=== PATIENT | male | born 1960 | race Two or more races ===

== ENCOUNTER → 2018-08-19 | Outpatient (CLI) | payer OTHER ==
[~2018-08-19] MED LIST: LIDOCAINE 1% 300 MG/30 ML SDV ONE
== END ==
LOC: FIMAGING 07:44
PROVIDERS: ATTEND Internal Medicine Hematology & Oncology
PROC: 07B53ZX Excision of Right Axillary Lymphatic, Percutaneous Approach, Diagnostic (ICD-10-PCS; principal; 2018-08-19)
DX: R59.9 Enlarged lymph nodes, unspecified (principal); C20 Malignant neoplasm of rectum
CPT/HCPCS: 88184-90; 88185-91

== ENCOUNTER 2018-11-13 08:51 | Inpatient (IN) | payer MEDICAID ==
[~2018-11-13 08:51] MED LIST changes: -LIDOCAINE 1% 300 MG/30 ML SDV ONE; +cefOXitin SODIUM 2 GM in NS 100 ML IV ONE
[2018-11-13] MEDS ORDERED: LR 1,000 ML IV ONE (09:18)
--- NOTE | 2018-11-13 10:58 | PDHPUP ---
History & Physical Update H&P update statement: This history and physical update is based on an assessment of the patient which was completed after admission or registration (within 24 hours), but prior to the surgery/procedure. H&P update: H&P reviewed & patient examined, changes noted (had coffee with cream this morning - delaying case. Bowel prep with clear return)
[2018-11-13] MEDS ORDERED: BUPIVACAINE 0.5% 30 ML SDV ONE (13:54)
[2018-11-13] MEDS ORDERED: MIDAZOLAM 2 MG/2 ML VIAL IVP ONE (14:56)
--- NOTE | 2018-11-13 14:59 | PDANEPAE ---
ANE Past Medical History - Cardiovascular History Hx Hypertension: No Hx Arrhythmias: No Hx Chest Pain: No Hx Coronary Artery / Peripheral Vascular Disease: No Hx CHF / Valvular Disease: No Hx Palpitations: No - Pulmonary History Hx COPD: No Hx Asthma/Reactive Airway Disease: No Hx Recent Upper Respiratory Infection: No Hx Oxygen in Use at Home: No Hx Sleep Apnea: No Sleep Apnea Screening Result - Last Documented: Negative - Neurologic History Hx Cerebrovascular Accident: No Hx Seizures: No Hx Dementia: No - Endocrine History Hx Diabetes: No - Renal History Hx Renal Disorders: No - Liver History Hx Hepatic Disorders: No - Neurological & Psychiatric Hx Hx Neurological and Psychiatric Disorders: No - Cancer History Hx Cancer: Yes Cancer History Comment: rectal ca - Congenital Disorder History Hx Congenital Disorders: No - GI History Hx Gastrointestinal Disorders: Yes Gastrointestinal History Comment: hx of colonoscopy. rectal bleeding on and off since 02/2018 - Other Health History Other Health History: missing teeth. rash on right knee, ankle - Chronic Pain History Chronic Pain: No - Surgical History Prior Surgeries: left knee scope- cyst removed. left hip fx repair s/p fall off ladder in 2002. tonsillectomy as child ANE Review of Systems Review of Systems: - Exercise capacity METS (RN): 4 METS ANE Patient History - Allergies Allergies/Adverse Reactions: No Known Allergies Allergy (Verified 11/05/18 17:04) - Home Medications Home medications: home medication list seen and reviewed Home Medications: NK [No Known Home Meds] 11/04/18 [Last Taken Unknown] - NPO status NPO Status: no food or drink >8 hours NPO Since - Liquids (Date): 11/13/18 NPO Since - Liquids (Time): 08:30 NPO Since - Solids (Date): 11/12/18 NPO Since - Solids (Time): 10:30 - Anes Hx Anes Hx: no prior problems - Smoking Hx Smoking Status: Current some day smoker - Family Anes Hx Family Hx Anesthesia Complications: none ANE Labs/Vital Signs - Vital Signs Blood Pressure: 150/92 Heart Rate: 64 Respiratory Rate: 18 O2 Sat (%): 95 Height: 165.1 cm Weight: 86.183 kg ANE Physical Exam - Airway Neck exam: FROM Mallampati Score: Class 2 Mouth exam: normal dental/mouth exam - Pulmonary Pulmonary: no respiratory distress, no rales or rhonchi, clear to auscultation - Cardiovascular Cardiovascular: regular rate and rhythym, no murmur, rub, or gallop - ASA Status ASA Status: II ANE Anesthesia Plan Anesthesia Plan: general endotracheal anesthesia
[2018-11-13] MEDS ORDERED: PROPOFOL 200 MG/20 ML VIAL ONE (15:47)
[2018-11-13] MEDS ORDERED: LIDOCAINE 2% 2 ML INJ ONE (15:48)
[2018-11-13] MEDS ORDERED: ONDANSETRON 4 MG/2 ML VIAL ONE (15:48)
[2018-11-13] MEDS ORDERED: DEXAMETHASONE 4 MG/ML VIAL ONE ×2 (15:48)
[2018-11-13] MEDS ORDERED: ROCURONIUM 100 MG/10 ML VIAL ONE (15:48)
[2018-11-13] MEDS ORDERED: ENALAPRILAT DIHYDRATE 2.5 MG/2 ML VIAL IVP ONE (17:02)
[2018-11-13] MEDS ORDERED: ROCURONIUM 50 MG/5 ML VIAL ONE (18:36)
[2018-11-13] MEDS ORDERED: NALOXONE HCL 0.4 MG/ML INJ IVP PRN (19:38)
[2018-11-13] MEDS ORDERED: LR 500 ML IV PRN (19:38)
[2018-11-13] MEDS ORDERED: ONDANSETRON 4 MG/2 ML VIAL IVP PRN ×2 (19:38→19:56)
[2018-11-13] MEDS ORDERED: PROMETHAZINE HCL 25 MG/ML INJ IVP PRN (19:38)
[2018-11-13] MEDS ORDERED: MEPERIDINE 25 MG/0.5 ML AMP IVP PRN (19:38)
[2018-11-13] MEDS ORDERED: SUGAMMADEX SODIUM 200 MG/2 ML VIAL IVP ONE (19:41)
--- NOTE | 2018-11-13 19:54 | POSTOPPROG ---
Post Op Note Date of Operation: 11/13/18 Surgeon: Carla Tellez Medicine Tech: krysta Anesthesiologist: osmel Anesthesia: GET(General Endotracheal) Pre-op Diagnosis: rectal ca Post-op Diagnosis: same Indication: 58 yo with rectal ca Procedure: davinci lar diverting loop ileostomy Findings: about 6 cm from anal verge Inf/Abcess present in the surg proc area at time of surgery?: No EBL: Minimal Bowel Protocol: Yes Clean Closure Performed: Yes Specimen(s): rectum and rings
[2018-11-13] MEDS ORDERED: ACETAMINOPHEN 325 MG TAB PO PRN (19:56)
--- NOTE | 2018-11-13 19:58 | POSTANESTH ---
Post Anesthetic Evaluation Cardiovascular Status: Normal, Stable, Similar to Pre-Op Cond Respiratory Status: Normal, Stable, Similar to Pre-op Cond. Level of Consciousness/Mental Status: Moderately Sleepy Pain Control: Adequate, Prn Tx Ordered Nausea/Vomiting Control: Adequate, Prn Tx Ordered Complications Possibly Related to Anesthesia: None Noted
[2018-11-13] MEDS ORDERED: fentaNYL 100 MCG/2 ML INJ ONE (20:29)
[2018-11-13] MEDS: fentaNYL 100 MCG/2 ML INJ IVP PRN ×2 (20:32→20:40)
[2018-11-13] MEDS: NS 1,000 ML IV SCH (22:19)
[2018-11-14 04:54] LABS: PLATELET COUNT 243 10^3/uL (150-400)
--- NOTE | 2018-11-14 06:20 | PDMN ---
Medical Necessity Medical necessity: [facility] IP only surgery; cpt 49601 Colon Resection w/Ileostomy
[2018-11-14] MEDS: KETOROLAC 15 MG/1 ML SDV IVP PRN ×2 (08:19→15:21)
[2018-11-14] MEDS: ENOXAPARIN 40 MG/0.4 ML SYR SC SCH (10:43)
--- NOTE | 2018-11-14 10:51 | ASMTCMCOM ---
CM Note CM Note Notes: CM spoke with pt and family in the room. Pt admitted for ileostomy placement in the setting of colon cancer. Pt had surgery yesterday. Pt lives with female partner and just moved to [facility] [place] Dr. Winslow [address] [place] [address], [place]. No therapies ordered at this time. Pt has not yet received education from hand sewer shoes, but per surgeon will need [facility] RN for ostomy support upon discharge. Referrals sent to [facility] in the area. CM to follow. D/C Plan: [facility] RN Date Signed: 11/14/2018 10:51 AM Electronically Signed By:Rhina Wilson. LESIA
--- NOTE | 2018-11-14 15:54 | SOAPPROG ---
SOAP Progress Note Assessment/Plan: Assessment: POD # 1 s/p davinci LAR with diverting ileostomy for rectal cancer (s/p chemo and radiation) Doing well Gas and some stool in appliance Neuro: Morphine Resp - IS Cards - monitor for hemodynamic instability GI - Some bowel function has returned FEN - Clears - Sauer can remove Heme/ID - No abx Proph - lovenox Dispo - continue inpatient, greater than 2 midnighjts for return of bowel function. Will need home health S: Pain controlled, no nausea O: Sitting in bed CTAB RRR BS hypoactive gas and stool in appliance Soft Incisions cdi GHANSHYAM with serosang fluid Plan: 11/14/18 15:46 Objective: Vital Signs Temp Pulse Resp BP Pulse Ox 37.2 C 78 16 130/73 H 95 11/14/18 11:14 11/14/18 11:14 11/14/18 11:14 11/14/18 11:14 11/14/18 11:14 Laboratory Results 11/14/18 04:25 11/14/18 04:25 11/13/18 11/14/18 11/15/18 05:59 05:59 05:59 Intake Total 2760 Output Total 1355 Balance 1405 ICD10 Worksheet Patient Problems: Problems Problem Status Onset Rectal cancer Acute - ICD10 Problem Qualifiers (1) Rectal cancer
[2018-11-14] MEDS: NS 1,000 ML IV SCH (19:15)
[2018-11-14] MEDS: HYDROCODONE/APAP 5/325 TAB PO PRN (20:44)
[2018-11-15 05:53] LABS: PLATELET COUNT 195 10^3/uL (150-400)
[2018-11-15] MEDS: KETOROLAC 15 MG/1 ML SDV IVP PRN (07:42)
[2018-11-15] MEDS: ENOXAPARIN 40 MG/0.4 ML SYR SC SCH (10:12)
--- NOTE | 2018-11-15 13:06 | SOAPPROG ---
SOAP Progress Note Assessment/Plan: Assessment: POD # 2 s/p davinci LAR with diverting ileostomy for rectal cancer (s/p chemo and radiation) Doing well Gas and some stool in appliance Neuro: Morphine/Toradol Resp - IS Cards - monitor for hemodynamic instability GI - Some bowel function has returned FEN - Advance diet - Sauer can remove Heme/ID - No abx Proph - lovenox Dispo - continue inpatient, greater than 2 midnighjts for return of bowel function. Will need home health S: Pain controlled, no nausea. Very hungry. Lots of gas O: Sitting in bed CTAB RRR BS present gas and stool in appliance Soft Incisions cdi GHANSHYAM with serosang fluid Plan: 11/14/18 15:46 11/15/18 13:04 Objective: Vital Signs Temp Pulse Resp BP Pulse Ox 37.1 C 67 16 118/73 93 11/15/18 11:55 11/15/18 11:55 11/15/18 11:55 11/15/18 11:55 11/15/18 11:55 Laboratory Results 11/15/18 04:20 11/14/18 04:25 11/14/18 11/15/18 11/16/18 05:59 05:59 05:59 Intake Total 2760 550 Output Total 1355 0425 390 Balance 1405 -2235 -390 ICD10 Worksheet Patient Problems: Problems Problem Status Onset Rectal cancer Acute - ICD10 Problem Qualifiers (1) Rectal cancer
[2018-11-15] MEDS: NS 1,000 ML IV SCH (19:47)
[2018-11-15] MEDS: HYDROCODONE/APAP 5/325 TAB PO PRN (19:47)
[2018-11-16] MEDS: ENOXAPARIN 40 MG/0.4 ML SYR SC SCH (09:04)
[2018-11-16 11:22] VITALS: BP 146/99
--- NOTE | 2018-11-16 13:34 | SOAPPROG ---
SOAP Progress Note Assessment/Plan: Assessment: POD # 3 s/p davinci LAR with diverting ileostomy for rectal cancer (s/p chemo and radiation) Doing well Gas and some stool in appliance Neuro:ibuprofen Resp - IS Cards - monitor for hemodynamic instability GI - Some bowel function has returned FEN - regular diet Proph - lovenox Dispo - home tody S: Pain controlled, no nausea. tolerating diet O: Sitting in bed CTAB RRR BS present gas and stool in appliance Soft Incisions cdi GHANSHYAM with serosang fluid Plan: 11/14/18 15:46 11/15/18 13:04 11/16/18 13:33 Objective: Vital Signs Temp Pulse Resp BP Pulse Ox 37.0 C 69 16 146/99 H 90 L 11/16/18 11:21 11/16/18 11:21 11/16/18 11:21 11/16/18 11:21 11/16/18 11:21 Laboratory Results 11/15/18 04:20 11/14/18 04:25 11/15/18 11/16/18 11/17/18 05:59 05:59 05:59 Intake Total 550 850 Output Total 1614 4460 1330 [facility] -2235 -3610 -1330 ICD10 Worksheet Patient Problems: Problems Problem Status Onset Rectal cancer Acute - ICD10 Problem Qualifiers (1) Rectal cancer
--- NOTE | 2018-11-16 13:41 | PDIAF ---
- Diagnosis Diagnosis: rectal cancer Code Status: Full Code - Medication Management Discharge Medications: electronically signed and located in the Home Medication List. - Orders Services needed: Home Care, Registered Nurse Home Care Face to Face: I certify that this patient was under my care and that I had the required [id number] encounter meeting the encounter requirements on the discharge day. My findings support the fact that the patient is homebound as defined in Home Care Face to Face Continued: CMS Chapter 7 Medicare Benefits Manual 30.1.1 , The condition of the patient is such that there exists a normal inability to leave home and consequently, leaving home would require a considerable and taxing effort. Diet Recommendation: no restrictions on diet Wound Care Instructions: loop ileostomy teaching Activity/Weight Bearing Restrictions: No heavy lifting pushing or pulling more than 15 lbs for 6 weeks Additional Instructions: Dr. Tellez post op instruction sheet May shower No heavy lifting pushing or pulling more than 15 lbs for 6 weeks - Follow Up Care Current Providers and Referrals: Wound Ostmy Skin LESIA Valverde, RN [Registered Nurse] - (2-3 weeks for ostomy check in appointment) Carla Tellez MD [Medical Doctor] - follow up in 2 weeks NONE *PRIMARY CARE P,. [Primary Care Provider] -
--- NOTE | 2018-11-16 15:16 | ASMTDCNOTE ---
Case Management Discharge Discharge Order Complete? Answers: Yes Patient to Obtain Answers: Independently Medications Transportation Arranged Answers: Family/Friends Faxed Final Orders Answers: Yes Agency/Facility Transfer Answers: Yes Report Printed & Faxed to Receiving Agency Discharge Comments Notes: D/w MD, final orders faxed. [employer] notified. scientific illustrator to do teaching and send pt with some supplies. Date Signed: 11/16/2018 02:13 PM Electronically Signed By:Audra Trammell RN
--- NOTE | 2018-11-16 15:32 | WOCRNPDOC ---
WOCRN Advanced Assessment Note - Ileostomy Assessment, Advanced Right Abdomen Ileostomy Appliance Intact: Yes Ileostomy Appliance Currently in Use: Two Piece Flat, 2 1/4 Ileostomy Accessory: Barrier Ring (given in kit), Powder (given ), Stoma Paste Stoma Color: [place], Red Stoma Turgor: Moist, Shiny Stoma Height: Recessed Ileostomy Effluent: Fecal, Thin Ileostomy Size - Head-to-Toe Length X Width X Depth (cm): pt declined removal of appliance for accurate measurement Ileostomy Details: Loop Ileostomy Comment/Treatment Details: Surgery friday afernoon so this is the first visit for Ostomy teaching. Patient discharging this afternoon with home health RN visits. Starter kit given, reviewed and assigned reading. Talked patient through pouch emptying which he did well. Patient declined appliance change teaching since changed yesterday. Removed pouch to show patient the stoma and demo how to measure for cut to fit appliance. Difficult to see stoma to measure due to intact appliance and recessed stoma. Talked patient through how to measure for cutting using the teaching stoma. Discussed appliance options and patient prefers to stay with [place] two piece 2 1/4 flat currently wearing. Sent home with 2 convex wafers as an option for home RN to use if stoma recessed at change. Given verbal permission by patient to enroll in secure start program and initiated. Talked with patient about peristomal skin care; emptying positions; showering; introduced stoma powder/barrier rings and when to use; sent with paste. Patient attentive and involved during all of teaching. [facility] for resource.
--- NOTE | 2018-11-17 13:57 | ASDISCHSUM ---
Discharge Information Plan Status:Home with Home Health Medically Cleared to Leave:11/16/2018 Discharge Date:11/16/2018 05:38 PM CM D/C Disposition: ADT D/C Disposition:[id number] Projected Discharge Date:11/16/2018 11:00 AM Transportation at D/C: Discharge Delay Reason: Follow-Up Date:11/16/2018 11:00 AM Discharge Slot: Final Diagnosis: Placement Information Referral Type:*Home Health Care Services Referral ID:[id number] Provider Name:[facility] (formerly [facility]) Address 1:[address] [facility] [address] Address 2: City:[place] Selection Factors: State:[place] Patient Contact Information Contact Name:MARY Relationship:Aunt Address: Work Phone: City: [facility] [place] Phone: [facility] Code: Email: Financial Information Financial Class:Medicaid Primary Plan Desc:MED[place] Primary Plan Number:[id number] Secondary Plan Desc: Secondary Plan Number: Assessment Information [facility] CM Progress Note CM Note CM Note Notes: CM spoke with pt and family in the room. Pt admitted for ileostomy placement in the setting of colon cancer. Pt had surgery yesterday. Pt lives with female partner and just moved to [address] [place] [address] Dr. Wins[address] [place] [address]. No therapies ordered at this time. Pt has not yet received education from day care director, but per surgeon will need [facility] RN for ostomy support upon discharge. Referrals sent to [facility] in the area. CM to follow. D/C Plan: [facility] RN Date Signed: 11/14/2018 10:51 AM Electronically Signed By:Rhina Wilson. RN Case Management Discharge Plan Note Case Management Discharge Discharge Order Complete? Answers: Yes Patient to Obtain Answers: Independently Medications Transportation Arranged Answers: Family/Friends Faxed Final Orders Answers: Yes Agency/Facility Transfer Answers: Yes Report Printed & Faxed to Receiving Agency Discharge Comments Notes: D/w MD, final orders faxed. [employer] notified. director of staff development to do teaching and send pt with some supplies. Date Signed: 11/16/2018 02:13 PM Electronically Signed By:Audra Trammell RN Intervention Information
--- NOTE | 2018-11-17 14:05 | GDS ---
[f rep st] DISCHARGE SUMMARY ADMITTING DIAGNOSIS: Rectal cancer. SECONDARY DIAGNOSIS: None. REASON FOR ADMISSION: A 58-year-old man with rectal cancer who underwent chemotherapy and radiation. He presents at this time for surgical intervention. HOSPITAL COURSE: He was taken to the operating room on 11/13/[address] Carla Tellez for a robot-ass isted low anterior resection with diverting loop ileostomy. The tattooed area of cancer was approxim ately 6 cm from the anal verge. Through his postoperative course, he received ostomy teaching. Postoperative day #1, his Sauer catheter was removed. He was started on clear liquid diet. He was p assing stool and flatus into the appliance. Postoperative day #2, his diet was advanced. He was transitioned to oral pain medication. By postoperative day #3, he was ambulating independently, tolerating a regular diet, had full return of bowel function, and his pain was well controlled. DISCHARGE CONDITION: Being discharged home in stable condition with home care for ostomy teaching. DISCHARGE INSTRUCTIONS AND FOLLOWUP: He was sent home with Dr. Tellez's postop instructions instructi on sheet. He may shower. No heavy lifting, pushing, or pulling greater than 15 pounds for 6 weeks. Ostomy education instructions also included. He will follow up with Dr. Tellez in 2 weeks. Call wit h worsening symptoms, questions, or concerns. He will also follow up with the wound ostomy care nurs homer. Raad #: [id number]/[id number]
--- NOTE | 2018-11-20 16:03 | GOP ---
[f rep st] OPERATIVE REPORT DATE OF OPERATION: 11/13/2018 SURGEON: Carla Tellez MD DIRECT SERVICE WORKER: Wiliam Peralta MD. ANESTHESIA: General. ANESTHESIOLOGIST: Henrik Mcgill MD. PREOPERATIVE DIAGNOSIS: Rectal cancer. POSTOPERATIVE DIAGNOSIS: Rectal cancer. PROCEDURE PERFORMED: [place]ola low anterior resection with diverting loop ileostomy. FINDINGS: ink posterior SPECIMENS: Colon and anastomotic rings. INDICATIONS: The patient is a 58 year old who was diagnosed with rectal cancer. He has undergone neoadjuvant chemotherapy and radiation. DESCRIPTION OF PROCEDURE: Patient was brought into the operating room, placed supine on the table, and general anesthesia was administered. He was then placed in lithotomy position. The abdomen and perineal areas were prepped and draped in the usual sterile fashion. I made a small incision above his umbilicus. I inserted the Veress needle. It passed the hanging drop test. Abdomen insufflated easily to a pressure of 15 mmHg. I placed an 8 mm trocar at this site with a camera. There were no injuries from Veress needle placement. I placed two additional trocars on the left abdomen and two on the right side of the abdomen. He was placed in the Trendelenburg position. The robot was brought in and docked. Instruments were introduced under direct vision. Exploration of the abdominal cavity took place to rule out metastatic disease. There was no evidence of metastatic disease. The sigmoid colon was retracted anteriorly, which was redundant, and the vascular pedicle was identified. Incision in the peritoneum was done at the level of the sacral promontory, and dissection was carried up to bring up the mesentery of the sigmoid from the retroperitoneum. I spent time looking for the left ureter but never truly identified it during the case. Dissection was carried laterally along the white line of Toldt. Posterior dissection to the rectum was done in the presacral space using the Harmonic. I was well below the levels of the levator ani. Lateral dissection was performed. The lateral attachments were taken down using the Harmonic. Anteriorly peritoneal reflection was opened and the dissection was carried distally. There was blue ink posteriorly and this tracked significantly. Stapler was introduced, and I transected the specimen proximally. Once I was happy with the level of the dissection along the peritoneal reflection and I was not able to go any further as it seemed to only had approximately 5 cm length left, I stapled in the pelvis. I placed the specimen in the EndoCatch bag. I was concerned that the distal staple line was so close to the sphincters that if there were any issues with firing that I would not be able to redo that staple line and so I made a Pfannenstiel incision and placed an Freddy wound protector. I retrieved the specimen. I removed the staple line on the proximal side of bowel. I performed hand pursestring suture with 2-0 Prolene. I placed the anvil in this area. I inserted the stapler 33 EEA through the bottom, and the spike was deployed, performing and connected. The stapler was fired, rings inspected and found to be intact. The anastomosis was checked for a leak using air insufflation. There was no tension at the anastomosis. Hemostasis was achieved. A drain was placed in the pelvis. I selected a piece of bowel on the terminal ileum, and I made an incision on the right lower quadrant that had been marked by the ostomy nurses before surgery. I dissected down through the subcutaneous tissues, divided the fascia, and spread the rectus muscles. I brought the loop of bowel out to the skin. Gown and gloves were changed and clean closure performed. The fascia was closed with #1 PDS. Skin closed with 3-0 Vicryl followed by 4-0 Monocryl. Dermabond applied. The skin was closed with 4-0 Monocryl. Next, I matured the ostomy. I made an enterotomy and performed four brooking sutures. The fascia was enough to accommodate 3 fingerbreadths. I then matured the ostomy with 3-0 Vicryl and appliance was placed. He was awakened in the operating room, taken out of lithotomy position, extubated, transferred to PACU in stable condition. /[id number]/MODL MTDD
== END 2018-11-16 17:38 | disposition home health service (06) | DRG 230 ==
LOC: F3E 08:51
PROVIDERS: ADMIT Surgery; ATTEND Surgery
PROC: 0DTP4ZZ Resection of Rectum, Percutaneous Endoscopic Approach (ICD-10-PCS; principal; 2018-11-13 11:00)
PROC: 0D1B4Z4 Bypass Ileum to Cutaneous, Percutaneous Endoscopic Approach (ICD-10-PCS; principal; 2018-11-13 11:00)
PROC: 8E0W4CZ Robotic Assisted Procedure of Trunk Region, Percutaneous Endoscopic Approach (ICD-10-PCS; principal; 2018-11-13 11:00)
PROC: 0DBN4ZZ Excision of Sigmoid Colon, Percutaneous Endoscopic Approach (ICD-10-PCS; principal; 2018-11-13 11:00)
DX: C20 Malignant neoplasm of rectum (principal); Z87.891 Personal history of nicotine dependence; Z92.3 Personal history of irradiation
CPT/HCPCS: J0694; J1100; J1650; J1885; J2250; J2270; J2405; J2704; J3010

== ENCOUNTER 2018-11-19 20:00 | Observation (INO) | payer MEDICAID ==
[2018-11-19] MEDS ORDERED: ACETAMINOPHEN 325 MG TAB PO PRN (20:15)
[2018-11-19] MEDS ORDERED: ONDANSETRON DISINTEGRATING 4 MG TAB PO PRN (20:15)
[2018-11-19] MEDS ORDERED: LORazepam 2 MG/ML INJ IVP PRN (20:15)
[2018-11-19] MEDS ORDERED: ONDANSETRON 4 MG/2 ML VIAL IVP PRN (20:15)
[2018-11-19] MEDS ORDERED: HYDROCODONE/APAP 5/325 TAB PO PRN (21:30)
[2018-11-19] MEDS ORDERED: hydrALAZINE 20 MG/ML VIAL IVP PRN (21:30)
--- NOTE | 2018-11-19 21:30 | PDGENHP ---
History and Physical - Chief Complaint abdominal pain, elevated BP - History of Present Illness 58yo M with history stage IIIB rectal adenocarcinoma s/p XRT and chemo followed by surgical resection with diverting loop ileostomy 11/13/2018 who presents from [facility] ED with abdominal pain, nausea, and elevated BP. He was discharged from this facility on 11/17 and was doing well. He started to develop some abdominal pain yesterday and again had nausea last night after eating some artichoke dip that had sat out for several hours the night before. He has been changing his ostomy every 3-4 hours but noticed that output had slowed today. No fevers or chills. Abdominal pain became severe so he went to the ED. He had one episode of bilious emesis. He was found to be tachycardic with a BP of 208/ 127. His BP improved to 162/111 after administration of pain medications and 5mg IV metoprolol. A CT of his abdomen shows distention of ileum proximal to ostomy site with multiple air-fluid levels raising concern for obstruction at ostomy site of developing ileus. He was transferred here for further management and care. History Information - Allergies/Home Medication List Allergies/Adverse Reactions: No Known Allergies Allergy (Verified 11/05/18 17:04) Home Medications: Ibuprofen [Motrin (*)] 200 - 600 mg PO Q6HRS PRN 11/19/18 [Last Taken Unknown] I have personally reviewed and updated: family history, medical history, social history, surgical history - Past Medical History Additional medical history: stage IIIB adenocarcinoma of rectum - Surgical History Additional surgical history: robot-assisted LAR with diverting loop ileostomy - Family History Positive for: non-pertinent - Social History Smoking Status: Current some day smoker Alcohol Use: None Drug Use: None Review of Systems Review of Systems: ROS: 10pt was reviewed & negative except for what was stated in HPI & below Physical Exam Physical Exam: Constitutional: no apparent distress, appears nourished, not in pain Eyes: PERRL, anicteric sclera, EOMI Ears, Nose, Mouth, Throat: moist mucous membranes, hearing normal, ears appear normal, no oral mucosal ulcers Cardiovascular: regular rate and rhythym, no murmur, rub, or gallop, No edema Respiratory: no respiratory distress, no rales or rhonchi, clear to auscultation Gastrointestinal: other (laparoscopic incisions healing well, RLQ ostomy with green liquid in bag, unable to fully visulaize stoma ) Skin: warm, normal color, no rashes or abrasions, no fluctuance, no induration, No mottled Musculoskeletal: full muscle strength, no muscle tenderness, normal joint ROM, no joint effusions Neurologic: AAOx3 Psychiatric: interacting appropriately Lab Data & Imaging Review Interpretation: CT abd/pelvis per HPI. CTA chest: No PE. No pneumonia. Assessment & Plan Assessment: 58yo M with history stage IIIB rectal adenocarcinoma s/p XRT and chemo followed by surgical resection with diverting loop ileostomy 11/13/2018 who presents from [facility] ED with abdominal pain, nausea, and elevated BP. Imaging concerning for ileus. Plan: 1. Abdominal pain, distented ileum on CT: Suspicious for ileus. Less likely obstruction as having output from ostomy. - NPO - Pain control, anti-emetics - Low threshold for NG tube decompression if worsening - Surgery aware of admission, will see tomorrow - Continue routine ostomy care 2. Elevated BP: No prior dx of HTN. This is likely related to pain. - IV hydral PRN 3. Leukocytosis: 19k with increased neutrophils. CT without infection/abscess. - Monitor VTE ppx: SCDs Code: full Dispo: admit under observation
[2018-11-20 04:42] LABS: PLATELET COUNT 261 10^3/uL (150-400)
--- NOTE | 2018-11-20 08:45 | SOAPPROG ---
SOAP Progress Note Assessment/Plan: Assessment: will dictate partial sbo resolved tight by ostomy but able to digitize Plan: 11/20/18 08:44 Objective: Vital Signs Temp Pulse Resp BP Pulse Ox 36.8 C 81 18 165/74 H 92 11/20/18 08:00 11/20/18 08:00 11/20/18 08:00 11/20/18 08:00 11/20/18 08:00 Laboratory Results 11/20/18 03:34 11/20/18 03:34 11/19/18 11/20/18 11/21/18 05:59 05:59 05:59 Intake Total 0 Output Total 550 Balance -550 ICD10 Worksheet Patient Problems: Problems Problem Status Onset Rectal cancer Acute
[2018-11-20] MEDS ORDERED: ENOXAPARIN 40 MG/0.4 ML SYR SC SCH (09:00)
[2018-11-20 11:50] VITALS: BP 151/93
--- NOTE | 2018-11-20 12:26 | GCON ---
[f rep st] CONSULTATION DATE OF CONSULTATION: 11/20/2018 CHIEF COMPLAINT: Abdominal pain, emesis, hypertension. HISTORY OF PRESENT ILLNESS: Patient underwent low anterior resection on October. He did extremely well postoperatively with early return of bowel function and was discharged home on November 16, 2018. On November 18, he started having some abdominal pain. This increased in severity and he started having emesis and went to the emergency room. A CT scan was obtained which showed partial small bowel obstruction. He is still having ostomy output. He reports that he was eating large amounts of food at [facility]. He is feeling much better today. PAST MEDICAL HISTORY: Rectal cancer. SOCIAL HISTORY: Tobacco user. REVIEW OF SYSTEMS: When he was admitted, he had malaise, nausea, vomiting. Currently, he is feeling much better and is hungry. PHYSICAL EXAMINATION: VITAL SIGNS: 36.8, 81, 165/74, 18, 92%. GENERAL: Pleasant man lying in bed. HEENT: Normocephalic. No gross hearing deficits. Mucous membranes moist. Poor dentition. No scleral icterus. Pupils are equal and round. LUNGS: No increased work of breathing. CARDIAC: Regular rate. ABDOMEN: Bowel sounds are present. He has good ostomy placed. I digitized his ostomy and each limb is approximately 1.5 cm. There was good output. There is almost no profile to the ostomy, but it is pink and healthy. Soft. LABORATORY DATA: Results reviewed. His white count is normal today. IMPRESSION AND PLAN: A 58-year-old, status post low-anterior resection for a YP2N0 rectal cancer. By evidence of stool all over the bathroom, he is having excellent ostomy output. I have asked him to be cautious about what he eats and not to overdo it at [facility] or any other locations that he might visit. Clear diet, perhaps liquid or soft, for 1 to 2 weeks in small amounts and then advance diet. /[id number]/MODL MTDD
--- NOTE | 2018-11-20 12:44 | PDDCSUM ---
Discharge Summary Discharge Summary: 58yo M with history stage IIIB rectal adenocarcinoma s/p XRT and chemo followed by surgical resection with diverting loop ileostomy 11/13/2018 who presents from [facility] ED with abdominal pain, nausea, and elevated BP. Imaging concerning for partial SBO. The pt was monitored overnight. He had a BM. SBO has resolved Diet: clears/liquids/softs for 2 weeks and then advance f/u: with PCP to discuss HTN and with surgery as arranged DDX 1. Abdominal pain, distented ileum on CT - Continue routine ostomy care 2. Elevated BP: No prior dx of HTN. This is likely related to pain. - IV hydral PRN -will need op f/u 3. Leukocytosis: 19k with increased neutrophils. CT without infection/abscess. Exam: NAD AAOX3 RRR CTA B S/NT/N MEDS: SEE MED REC TOTAL TIME SPENT ON D/C IS 35 MINS
--- NOTE | 2018-11-20 13:44 | PDIAF ---
- Diagnosis Diagnosis: weakness Code Status: Full Code - Medication Management Discharge Medications: electronically signed and located in the Home Medication List. - Orders Services needed: Home Care, Registered Nurse Home Care Face to Face: I certify that this patient was under my care and that I had the required [id number] encounter meeting the encounter requirements on the discharge day. My findings support the fact that the patient is homebound as defined in Home Care Face to Face Continued: CMS Chapter 7 Medicare Benefits Manual 30.1.1 , The condition of the patient is such that there exists a normal inability to leave home and consequently, leaving home would require a considerable and taxing effort. Diet Recommendation: no restrictions on diet Additional Instructions: Activity: As tolerated Diet: don't overdo it with the diet. Please do clears, liquids, and soft diet for 2 weeks and then advance to a regular diet. FOLLOW UP: 1) with primary care doctor in 1-2 weeks. Need to discuss whether blood pressure meds are needed. Please check your blood pressure 3 times per day and bring to your appointmenT. 2) with surgery as previously scheduled - Follow Up Care Current Providers and Referrals: Carla Tellez MD [Medical Doctor] - follow up as scheduled Patient,NotPresent [Primary Care Provider] -
--- NOTE | 2018-11-20 15:11 | ASMTDCNOTE ---
Case Management Discharge Discharge Order Complete? Answers: Yes Patient to Obtain Answers: Other Notes: [facility] MAP Blood Medications Pressure Cuff Transportation Arranged Answers: Other Notes: Bus to [facility] Faxed Final Orders Answers: Yes Agency/Facility Transfer Answers: Yes Report Printed & Faxed to Receiving Agency Family Notified Answers: Yes Discharge Comments Notes: Family at bedside, requested guest service aide because pt's works long days. CM recieved call from [facility] and they are unable to accpt pt from LAST hospitalization due to not having RN available in [facility]. CM spoke with [facility] and they accept Medicaid. CM Submit Dc orders to them via [employer]. No other needs identified at this time. Date Signed: 11/20/2018 03:10 PM Electronically Signed By:JOSEP Valentine
--- NOTE | 2018-11-20 15:12 | ASDISCHSUM ---
Discharge Information Plan Status:Home with Home Health Medically Cleared to Leave: Discharge Date: D/C Disposition:Home Health Service [facility] D/C Disposition:Home, Routine, Self-Care Projected Discharge Date:11/20/2018 11:00 AM Transportation at D/C:Family Discharge Delay Reason: Follow-Up Date:11/20/2018 11:00 AM Discharge Slot: Final Diagnosis: Placement Information Referral Type:*Home Health Care Services Referral ID:[id number] Provider Name:[facility] Address 1:[address] Phone Number: Address 2: Fax Number: [facility]:[place] Selection Factors: State:[place] Patient Contact Information Contact Name:MARY Relationship:Aunt Address: Work Phone: City: [facility] Phone: [facility] Code: Email: Financial Information Financial Class:Medicaid Primary Plan Desc:MEDICAID HEALTH [employer] Primary Plan Number:[id number] Secondary Plan Desc: Secondary Plan Number: Assessment Information LACE LACE Length of stay for Answers: Less than 1 day current admission Acuity / Level of Answers: No Care: Did the patient have an inpatient admission? Comorbidities - select Answers: Any tumor (including all that apply lymphoma or leukemia) # of Emergency department Answers: 0 visits in the last 6 months Social determinants Answers: Lack of community resources and/or lack of social support (no pcp, lives alone, transportation, noe d) Score: 6 Date Signed: 11/20/2018 03:11 PM Electronically Signed By:JOSEP Valentine Case Management Discharge Plan Note Case Management Discharge Discharge Order Complete? Answers: Yes Patient to Obtain Answers: Other Notes: [facility] MAP Blood Medications Pressure Cuff Transportation Arranged Answers: Other Notes: Bus to [facility] Faxed Final Orders Answers: Yes Agency/Facility Transfer Answers: Yes Report Printed & Faxed to Receiving Agency Family Notified Answers: Yes Discharge Comments Notes: Family at bedside, requested brain surgeon because pt's works long days. CM recieved call from [facility] and they are unable to accpt pt from LAST hospitalization due to not having RN available in [facility]. CM spoke with [facility] and they accept Medicaid. CM Submit Dc orders to them via [employer]. No other needs identified at this time. Date Signed: 11/20/2018 03:10 PM Electronically Signed By:JOSEP Valentine Intervention Information
--- NOTE | 2018-11-20 15:15 | WOCRNPDOC ---
ANETA Advanced Assessment Note - Ileostomy Assessment, Advanced Right Abdomen Ileostomy Ileostomy Appliance Intact: Yes Ileostomy Appliance Currently in Use: Two Piece Flat, 2 1/4 Ileostomy Accessory: Barrier Ring (used with change), Powder (used with change) Stoma Color: Red Stoma Turgor: Taught Stoma Shape: Oval Stoma Height: Recessed Mucocutaneus Junction: Intact Ileostomy Effluent: Flatus, Fecal, Thin, Liquid Ileostomy Size - Head-to-Toe Length X Width X Depth (cm): 22x29 Ileostomy Details: Loop Peristomal Skin: Erythematic, Denuded (@ 6 and 12 oclock) Peristomal Skin Complications: Irritant Contact Dermatitis Stomal Complications: Retraction Ileostomy Comment/Treatment Details: Called to assist patient and with ostomy care. Patient had received ostomy teaching Friday (4 days ago) prior to DC from original Ostomy surgery. Patient had been doing changes and care well though has been experiencing some redness at stoma skin junction. In assessing appliance it appears that patient may be cutting wafer hole too small allowing effluent to stick under wafer irritating peristomal skin. Stoma completely recessed and inverted at 2-8 oclock. Assisted patient in cutting a convex appliance that did not seal to the perisotmal skin 2-8 oclock. Patient recut another appliance and we used a barrier ring this time with better results though not ideal. Educated patient on what to look for in wafer color changes, reiterated cleaning skin with water and allowing to dry completely and reviewed options for peristomal skin care. Answered all question and made sure patient had outpatient resource number. Also encouraged patient to keep [facility] visit for follow up. Patient anticipates DC this afternoon.
== END 2018-11-20 15:42 | disposition home or self-care (01) ==
LOC: F2W 20:00
PROVIDERS: ADMIT Internal Medicine; ATTEND Internal Medicine
DX: R10.9 Unspecified abdominal pain (principal); Z93.2 Ileostomy status; R03.0 Elevated blood-pressure reading, without diagnosis of hypertension; D72.829 Elevated white blood cell count, unspecified; C20 Malignant neoplasm of rectum
CPT/HCPCS: G0378; G0379; J2270